=== PATIENT | female | born 1960 | race Caucasian/White ===

== ENCOUNTER 2024-04-24 19:40 | Emergency (ER) | payer BC, SELFPAY ==
--- NOTE | ~2024-04-24 | XR_ITS ---
CLINICAL HISTORY: Coughing. Pneumonia 1 view chest x-ray Comparison: CR - CHEST 2 VIEWS - 12/28/17 07:58 EDT Findings: No consolidation or effusion. Heart size is normal. No acute fracture. IMPRESSION: 1. No acute findings. This document has been electronically signed by: Cornelius Acuña MD on 04/24/2024 20:16:46
[2024-04-24 19:46] VITALS: BP 122/78; BP 130/72; PULSE 79; PULSE 82; RESP 18; TEMP 37.1; O2SAT 96; O2SAT 98; BMI 31.1
--- NOTE | 2024-04-24 19:52 | ED_ITS ---
HPI - General Adult General Chief complaint: Upper Respiratory Symptoms Stated complaint: increased sob Time Seen by Provider: 04/25/24 00:20 Source: patient and EMS Mode of arrival: EMS Limitations: no limitations History of Present Illness ED Provider: Mi Charles NP HPI narrative: Patient is a 63-year-old female who presents emergency department for evaluation. She reports that about 3 weeks ago she began with upper respiratory symptoms, she thought she was feeling better for about 5 days but then yesterday she began again with a productive cough, rhinorrhea. She reports today she was notably dyspneic with minimal exertion, having to pause while walking to take deep breaths. She presented to an urgent care where she was noted to have a room air oxygen saturation of 86%. She was given a DuoNeb and was placed on a non-rebreather. She does state that after receiving this she did feel significant improvement in her symptoms. Since then she continues to feel much better but still not 100%. She arrived to the emergency department via EMS without hypoxia. She does admit that in the past when she has been ill she has required and albuterol inhaler for management of symptoms. She denies any history of asthma/COPD, is not a cigarette smoker but have prolonged exposure as a child. She denies headaches, vision changes, dizziness, lightheadedness, chest pain, numbness or tingling of the extremities, lower extremity pain swelling redness. Denies personal history of VTE/malignancy. Denies any known sick contacts Denies identifiable exacerbating factors. Denies dyspnea on exertion, orthopnea, PND. Denies trauma, fevers, chills, URI symptoms, sore throat, difficulty swallowing, neck pain, chest pain, palpitations, cough, nausea, vomiting, abdominal pain, numbness or tingling of the extremities, recent lower extremity pain or swelling. Denies alcohol use, recreational drugs, or smoking tobacco. Related Data Previous Rx's ?Medication ?Instructions ?Recorded albuterol sulfate 90 mcg/actuation 2 puff inhalation Q4-6H PRN 04/25/24 aerosol inhaler shortness of breath or wheezing #6.7 grams azithromycin 250 mg tablet See Rx Instructions PO .COMPLEX #6 04/25/24 tabs prednisone 20 mg tablet 40 mg (2 x 20 mg) PO DAILY #8 tabs 04/25/24 Allergies Allergy/AdvReac Type Severity Reaction Status Date / Time Penicillins [PENICILLINS] Allergy Intermediate HIVES-CHILDHOOD Verified 04/24/24 19:48 REACTION Sulfa (Sulfonamide AdvReac Intermediate VOMITING Unverified 12/27/19 19:28 Antibiotics) [SULFA (SULFONAMIDE ANTIBIOTICS)] Penicillin Allergy Unknown Unknown Uncoded 04/24/24 19:48 Sulfa Allergy Unknown Unknown Uncoded 04/24/24 19:48 Review of Systems 2 Review of Systems: Yes all other systems are reviewed and are negative [facility] Past Medical History Attestation statement: The following information was validated with the patient. Source: old records reviewed Social History Social History Alcohol intake: current Alcohol intake frequency: 0-2 drinks per day Smoked in Last 30 Days: No Use of substances other than those prescribed or required for medical reasons: No Advance Directives: No Do you have a plan to hurt others: No Plan Patient : No Physical Exam ED Vital Signs: Vital Signs - 24 hr 04/24/24 19:46 04/25/24 00:32 04/25/24 00:48 Temperature 98.8 F 98.0 F Pulse Rate 79 79 88 Respiratory Rate 18 15 22 H Blood Pressure 122/78 136/87 Pulse Oximetry 96 98 Oxygen Delivery Method Room Air Room Air 04/25/24 02:00 04/25/24 02:04 04/25/24 02:37 Temperature 98.1 F Pulse Rate 100 Respiratory Rate 20 Blood Pressure 125/75 Pulse Oximetry 92 92 93 Oxygen Delivery Method Room Air Room Air BMI result Body Mass Index 31.1 Appearance: Alert.?Oriented to person, place and time. No acute distress.?Normal affect. Eyes: Pupils equal, round and reactive to light.? ENT: Pharynx normal.?? Neck: Normal inspection.? Neck supple.?? CVS: Heart sounds normal. Normal heart rate and rhythm.? Pulses normal.?? Respiratory: No respiratory distress.? Lung sounds with inspiratory and expiratory wheezing bilaterally Abdomen: Soft and non-tender. Normoactive bowel sounds. Skin: Skin warm and dry.? Normal skin color.? Extremities: No lower extremity edema.? No calf ttp? Neuro: Moves all extremities spontaneously. Sensation intact bilaterally. No focal neuro deficits. Ambulates with normal steady gait. Course Course Course Narrative: RME: 63 yold female presents to the ED for coughing, shortness of breath, and nasal congestion. Vital signs stable. lungs positive for wheezing. ED bronchodilator, SARS, strep, and chest xray ordered Reevaluation(s) Reevaluation #1: Patient endorsing significant improvement in symptoms after receiving albuterol nebulizer and prednisone. Ambulatory O2 trial with O2 saturation greater than 92% on room air consistently. She states she is not dyspneic like she was earlier today. At this time suspect symptoms are consistent with acute bronchitis. However given the recent onset of worsening of symptoms, although no overt pneumonia on chest x-ray she has been ill for quite some time, we will cover additionally with azithromycin in combination with prednisone and an albuterol inhaler. Discussed strict return precautions. Outpatient follow-up with her primary care doctor. Medications Administered Discontinued Medications Generic Name Dose Route Start Last Admin Trade Name Freq PRN Reason Stop Dose Admin Albuterol Sulfate 2.5 mg/ 0 mg 04/25/24 00:47 04/25/24 00:48 Albuterol/Ipratropium 3 ml INHALE 04/25/24 00:48 1 dose ONCE ONE Administration Prednisone 40 mg 04/25/24 00:30 04/25/24 00:54 Prednisone 20 Mg Tablet PO 04/25/24 00:31 40 mg ONCE ONE Administration Medical Decision Making Medical Decision Making MDM Narrative: Patient is a 63-year-old female with no reported past medical history presents emergency department for evaluation of shortness of breath and cough as per HPI. She has been ill for a couple of weeks she had about 5 days improvement before feeling unwell again yesterday. Today she has been notably dyspneic, having to pause while ambulating and had room-air hypoxia and presentation to urgent care. At the time of my initial evaluation she appears quite well, she has no room- air hypoxia no tachypnea no tachycardia. On auscultation she does have inspiratory and expiratory wheezing bilaterally. It appears as though she has had history of likely some degree of bronchitis with illness in the past has required her to have an albuterol inhaler prescribed. She has no associated fevers or chills. CXR is obtained prior to my assumption of care is without consolidation or infiltrate to suggest an obvious pneumonia. Viral serologies are negative. Group a strep testing is negative. No sore throat, no evidence of RPA/BRICK WASHER. Will have respiratory evaluate patient ED bronchodilator protocol has been ordered, she received prednisone 40 mg orally in addition, plan to obtain basic labs to exclude alternative pathology her symptoms such as, electrolyte derangement, volume overload including be does not appear consistent with present no evidence on chest x-ray. After treatment will plan for ambulatory O2 trial to assess oxygen saturation. She has no associated chest pain, lower suspicion for ACS however will obtain troponin and EKG to exclude ischemia. Differential Diagnosis Differential Diagnoses: The differential diagnosis associated with the presentation includes (See narrative above) Admission/Observation Consideration of admission/observation: Escalation of care including admission/observation considered (See narrative above and course narrative for further detail) Lab Data MDM Lab Attestation statement: I reviewed the patient's lab results. (See course narrative for further detail) CBC is without leukocytosis anemia or thrombocytopenia. No electrolyte derangement. No AUGUSTINA. Viral serologies are negative. Group a strep testing negative 04/25/24 00:41 04/25/24 00:41 Labs: Lab Results 04/24/24 04/25/24 Range/Units 19:59 00:41 WBC 10.6 (4.8-10.8) X10*3/uL RBC 4.38 (4.20-5.50) X10*6/uL Hgb 12.8 (12.0-16.0) g/dl Hct 37.6 (37.0-47.0) % MCV 85.8 (80.0-98.0) fL MCH 29.2 (27.0-33.0) pg MCHC 34.0 (31.0-35.0) g/dl RDW 13.5 (11.0-16.0) % Plt Count 199 (160-400) X10*3/uL MPV 10.0 (9.4-12.3) fL Immature Gran % (Auto) 0.4 (0.0-0.4) % Neut % (Auto) 64.7 (45-73) % Lymph % (Auto) 19.8 L (20-40) % Wallace % (Auto) 5.8 (2-11) % Eos % (Auto) 8.9 H (0-4) % Baso % (Auto) 0.4 (0-2) % Lymph # (Auto) 2.1 (1.2-4.9) X10*3/uL Wallace # (Auto) 0.6 (0.1-1.2) X10*3/uL Eos # (Auto) 1.0 H (0.0-0.4) X10*3/uL Baso # (Auto) 0.0 (0.0-0.2) X10*3/uL Abs Immat Gran (auto) 0.04 H (0.00-0.03) X10*3/uL Absolute Neuts (auto) 6.9 (2.0-8.3) x10*3/uL Absolute Nucleated RBC 0.000 (0.0-0.012) X10*3/uL Nucleated RBC % (auto) 0.0 (0.0-0.2) /100WBC PT 11.4 (10.9-12.4) SEC INR 1.0 (0.9-1.1) Sodium 144 (135-145) mmol/L Potassium 4.4 (3.3-5.1) mmol/L Chloride 109 H (96-108) mmol/L Carbon Dioxide 27 (22-29) mmol/L Anion Gap 12 (12-20) BUN 21 H (9-16) mg/dL Creatinine 0.91 (0.5-1.4) mg/dL Estim Creat Clear Calc 69.8 Estimated GFR > 60 Random Glucose 139 H (60-115) mg/dL Calcium 9.5 (8.4-10.2) mg/dL Total Bilirubin 0.3 (0.0-1.0) mg/dL AST 21 (5-31) U/L ALT 13 (0-31) U/L Alkaline Phosphatase 76 (39-117) U/L Troponin I High Sens 7.9 (<3.5-17.0) ng/L B-Natriuretic Peptide 24 (<100) pg/mL Total Protein 7.4 (6.5-8.0) g/dL Albumin 3.9 (3.5-5.0) g/dL Influenza Type A (PCR) NEGATIVE (Negative) Influenza Type B (PCR) NEGATIVE (Negative) RSV RNA Qual (PCR) NEGATIVE (Negative) SARS-CoV-2 RNA (RT-PCR) NEGATIVE (Negative) S. pyogenes GrpA DEBRA Negative (Negative) Independent Interpretation I performed an independent interpretation of an: Plain X-Ray (No consolidation or infiltrate) Radiology Impression Discussion of test interpretation with radiology: I have reviewed the radiologist's reading. Radiologist Impression: 1 view chest x-ray Comparison: CR - CHEST 2 VIEWS - 12/28/17 07:58 EDT Findings: No consolidation or effusion. Heart size is normal. No acute fracture. IMPRESSION: 1. No acute findings. Independent Historian Clinical information obtained from an independent historian. History obtained from or confirmed by: EMS External Record Review External record reviewed: Outpatient record Prescription Management I considered prescription management with: Antibiotic Discharge Plan Discharge Clinical Impression: Acute bronchitis Patient Disposition: Home, Self-Care Instructions: Acute Bronchitis (ED), How to Use a Dry-Powder Inhaler (ED) Additional Instructions: Follow-up with your primary care doctor within the next few days if you are not feeling better or feeling worse. Complete entire course of antibiotics as prescribed. Take prednisone daily with food to prevent stomach upset. Use albuterol inhaler as needed for shortness of breath or wheezing 1 or 2 puffs every 4-6 hours. Return to emergency department any new or worsening symptoms or concerns Prescriptions: New prednisone 20 mg tablet 40 mg PO DAILY Qty: 8 0RF albuterol sulfate 90 mcg/actuation HFA aerosol inhaler 2 puff inhalation Q4-6H PRN (Reason: shortness of breath or wheezing) Qty: 6.7 0RF azithromycin 250 mg tablet See Rx Instructions .ROUTE .COMPLEX Qty: 6 0RF Rx Instructions: For 250 mg dose pack: take 500 mg today (day 1), then 250 mg for 4 days (days 2-5) Referrals: Caitlin Pratt MD [Primary Care Provider] - Interventions: ED Discharge Assessment Last Done: 04/25/24 02:37 Discharge Date/Time: 04/25/24 02:50 Print Language: Syriac
[2024-04-24 20:21] LABS: IDNOW Serial# 08D9AD1C; Strep A Nucleic Acid Negative (Negative)
[2024-04-24 20:53] LABS: Influenza A PCR NEGATIVE (Negative); Influenza B PCR NEGATIVE (Negative); Resp Syncy Virus RNA Qual PCR NEGATIVE (Negative); SARS COV2 PCR INHOUSE NEGATIVE (Negative)
[2024-04-25 00:32] VITALS: BP 136/87; PULSE 79; RESP 15; TEMP 36.7; O2SAT 98
--- NOTE | 2024-04-25 00:36 | ECG_ITS ---
Test Reason : SOB Blood Pressure : */* mmHG Vent. Rate : 95 BPM Atrial Rate : 95 BPM P-R Int : 132 ms QRS Dur : 78 ms QT Int : 358 ms P-R-T Axes : 54 2 19 degrees QTcB Int : 449 ms Poor data quality Sinus rhythm with Fusion complexes Septal infarct , age undetermined Abnormal ECG When compared with ECG of 21-Dec-2017 10:42, Fusion complexes are now Present Referred By: Mi Charles Electronically Signed By: John Butler
[2024-04-25 00:45] LABS: MANUAL DIFF FLAG NO
--- NOTE | 2024-04-25 00:46 | MHC.EDTECH ---
this tech changed over pt into hospital gown and obtained VS, VS were stable, lab work drawn
[2024-04-25 00:47] LABS: Basophils Percent Auto 0.4 % (0-2); Eosinophils Percent Auto 8.9 % (0-4); Hematocrit 37.6 % (37.0-47.0); Hemoglobin 12.8 g/dl (12.0-16.0); Imm Gran Abs Auto 0.04 X10*3/uL (0.00-0.03); Imm Gran Pct Auto 0.4 % (0.0-0.4); Lymphocytes Absolute Auto 2.1 X10*3/uL (1.2-4.9); Lymphocytes Percent Auto 19.8 % (20-40); Mean Corpuscular Hemoglobin 29.2 pg (27.0-33.0); Mean Corpuscular Volume 85.8 fL (80.0-98.0); Monocytes Absolute Auto 0.6 X10*3/uL (0.1-1.2); Monocytes Percent Auto 5.8 % (2-11); Neutrophils Absolute Auto 6.9 x10*3/uL (2.0-8.3); Neutrophils Percent Auto 64.7 % (45-73); Platelet Count 199 X10*3/uL (160-400); Red Blood Count 4.38 X10*6/uL (4.20-5.50); Red Cell Distribution Width 13.5 % (11.0-16.0); White Blood Count 10.6 X10*3/uL (4.8-10.8)
[2024-04-25 00:48] VITALS: PULSE 88; RESP 22; O2SAT 95
[2024-04-25] MEDS: Albuterol Sulfate 2.5 MG, Albuterol/Iprat 2.5/0.5MG 3 ML 3 ML INHALE (00:48)
[2024-04-25 00:53] LABS: Prothrombin Time 11.4 SEC (10.9-12.4)
[2024-04-25] MEDS: predniSONE 20 MG TABLET 40 MG PO (00:54)
[2024-04-25 01:07] LABS: B Type Natriuretic Peptide 24 pg/mL (<100); Troponin-I High Sensitivity 7.9 ng/L (<3.5-17.0)
[2024-04-25 01:12] LABS: Alanine Aminotransferase 13 U/L (0-31); Albumin Level 3.9 g/dL (3.5-5.0); Anion Gap 12 (12-20); Aspartate Amino Transferase 21 U/L (5-31); Bilirubin Total 0.3 mg/dL (0.0-1.0); Blood Urea Nitrogen 21 mg/dL (9-16); Calcium 9.5 mg/dL (8.4-10.2); Carbon Dioxide 27 mmol/L (22-29); Chloride 109 mmol/L (96-108); Creatinine Clr Calc Pharmacy 69.8; Estimated Glomerular Filt Rate > 60; Glucose Random 139 mg/dL (60-115); Potassium 4.4 mmol/L (3.3-5.1); Sodium 144 mmol/L (135-145); Total Protein 7.4 g/dL (6.5-8.0)
[2024-04-25 01:13] LABS: Alkaline Phosphatase 76 U/L (39-117)
--- NOTE | 2024-04-25 01:15 | MHC.EDTECH ---
at this time this tech performed an EKG on the pt, pt tolerated the procedure well, EKG given to
--- NOTE | 2024-04-25 01:25 | MHC.EDTECH ---
at this time this tech placed the pt on the commercial energy auditor as a precaution r/t the pt having trembling episode during Albuterol treatment, HR was around 107 BPM
--- NOTE | 2024-04-25 01:46 | MHC.EDTECH ---
at this time this tech performed an ambulation trial w/ the pt to assess her o2 saturation during exertion, pt completed the trial well w/ a steady brisk gaite, tremors noted still from Albuterol treatment, pt o2 dropped to 92% being the lowest. RN made aware, pt back in room connected to cardiac and continuos o2 monitor
[2024-04-25 02:00] VITALS: O2SAT 92
[2024-04-25 02:04] VITALS: O2SAT 92
[2024-04-25 02:37] VITALS: BP 125/75; PULSE 100; RESP 20; TEMP 36.7; O2SAT 93
== END 2024-04-25 02:50 | disposition home or self-care (01) ==
PROVIDERS: Nurse Practitioner Family; Physician Assistant; Emergency Provider Emergency Medicine Emergency Medical Services; PCP Internal Medicine
DX: J40 Bronchitis, not specified as acute or chronic (principal); R06.02 Shortness of breath; R05.9 Cough, unspecified; J34.89 Other specified disorders of nose and nasal sinuses; R94.31 Abnormal electrocardiogram [ECG] [EKG]; Z03.818 Encounter for observation for suspected exposure to other biological agents ruled out; Z79.899 Other long term (current) drug therapy
CPT/HCPCS: 0241U; 36415; 71045; 80053; 83880; 84484; 85025; 85610; 87651; 93005; 94640; 99284; 99285

== ENCOUNTER → 2024-04-24 19:52 | Outpatient (BNV) | payer SELFPAY | PROVIDERS: Visit Provider Radiology Diagnostic Radiology | DX: J18.9 Pneumonia, unspecified organism (principal); R05.9 Cough, unspecified | CPT/HCPCS: 71045 ==

== ENCOUNTER → 2024-04-25 00:36 | Outpatient (BNV) | payer BC, SELFPAY | PROVIDERS: Emergency Provider Emergency Medicine Emergency Medical Services; PCP Internal Medicine; Visit Provider Internal Medicine Cardiovascular Disease | DX: R94.31 Abnormal electrocardiogram [ECG] [EKG] (principal) | CPT/HCPCS: 93010 ==

== ENCOUNTER 2024-05-31 15:22 | Emergency (ER) | payer BC, SELFPAY ==
--- NOTE | ~2024-05-31 | CT_ITS ---
EXAMINATION: CT HEAD WITHOUT CONTRAST CLINICAL INFORMATION: Head strike, confusion. COMPARISON: 09/20/2019. TECHNIQUE: Contiguous axial imaging was performed from the skull base to vertex without intravenous administration of contrast. This CT examination was performed using dose optimization techniques as appropriate, variously including the following: *Automated exposure control *Adjustment of mA and/or kV according to patient size (this includes techniques or standardized protocols for targeted exams where dose is matched to indication/reason for exam; i.e. extremities or head) *Use of iterative reconstruction technique FINDINGS: There is no evidence of intracranial hemorrhage or extra-axial fluid collection. There is no mass effect, or edema. No CT evidence of acute territorial infarct. Ventricles, sulci, and cisterns are normal in size and configuration for patient age. No hydrocephalus. No midline shift. Negative hyperdense MCA sign. Negative insular ribbon sign. No significant white matter abnormalities. Globes and orbital contents image normally. No extracranial soft tissue abnormalities. The paranasal sinuses, mastoid air cells, and tympanic cavities are normally aerated. No suspicious bony abnormalities. There are no acute fractures evident. CT/CT head/brain wo IV con IMPRESSION: No acute intracranial abnormality. No fracture evident. Electronically signed by: Sahil Jung MD 05/31/2024 04:26 PM [facility]
--- NOTE | ~2024-05-31 | XR_ITS ---
CLINICAL HISTORY: fall Thoracic spine two views Comparison: None Findings: No acute fracture or dislocation is demonstrated. Posterior alignment is normal throughout. [id number] degenerative change noted. Surgical clips left upper quadrant. Impression: No acute processes This document has been electronically signed by: Malik Herring MD on 05/31/2024 21:11:58
--- NOTE | ~2024-05-31 | XR_ITS ---
CLINICAL HISTORY: fall Lumbar spine three views Comparison: None Findings: No acute fracture or dislocation is demonstrated. Posterior alignment is normal throughout. [id number] degenerative change noted. Surgical clips left upper quadrant. Impression: No acute processes This document has been electronically signed by: Malik Herring MD on 05/31/2024 20:58:55
--- NOTE | ~2024-05-31 | CT_ITS ---
EXAMINATION: CT CERVICAL SPINE WITHOUT CONTRAST CLINICAL INFORMATION: Fall with head strike, confusion. COMPARISON: None available. TECHNIQUE: Spiral CT imaging of the cervical spine performed in axial plane without contrast. Multiplanar reformatted images were constructed from the axial data set. This CT examination was performed using dose optimization techniques as appropriate, variously including the following: *Automated exposure control *Adjustment of mA and/or kV according to patient size (this includes techniques or standardized protocols for targeted exams where dose is matched to indication/reason for exam; i.e. extremities or head) *Use of iterative reconstruction technique FINDINGS: CORONAL ALIGNMENT: -Normal. SAGITTAL ALIGNMENT: -Normal. C1-C2 AND CRANIOCERVICAL JUNCTION: -Intact and aligned normally. VERTEBRAL BODIES AND FACETS: -No fracture, traumatic subluxation, compression deformity, or suspicious bone lesion. DISCS: -Mild disc degeneration present spanning C3-C6. PREVERTEBRAL AND PARAVERTEBRAL SOFT TISSUES: -Normal. -There is a right lower pole 7 mm thyroid nodule. Thyroid otherwise normal. LUNG APICES: -Clear bilaterally. CT/CT cervical spine wo IV con IMPRESSION: 1. No CT evidence of acute cervical spine fracture or injury. Electronically signed by: Sahil Jung MD 05/31/2024 04:29 PM [facility] [place]
--- NOTE | 2024-05-31 16:07 | ED_ITS ---
HPI - General Adult General Chief complaint: Fall Stated complaint: fell,hit head/ confusion,head, back pain Time Seen by Provider: 05/31/24 20:33 Source: patient and old records reviewed Mode of arrival: ambulatory Limitations: no limitations History of Present Illness ED Provider: GIL VALVERDE narrative: 63 yo female with PMH of bronchitis not on thinners was outside today and fell backwards at 11am. No LOC but did hit head and back. Now has pain in back with moving. No numbness, weakness, loss of control of bowel or bladder. No other injuries noted. No extremity injury reported. MD complaint: fall Onset (ago): hour(s) (11am today) Location: head and back Radiation: non-radiation Severity: moderate Quality: aching Pain Consistency: intermittent Relieving factors: immobilization Exacerbating factors: movement Associated symptoms: denies other symptoms Treatments prior to arrival: none Related Data Previous Rx's ?Medication ?Instructions ?Recorded albuterol sulfate 90 mcg/actuation 2 puff inhalation Q4-6H PRN 04/25/24 aerosol inhaler shortness of breath or wheezing #6.7 grams azithromycin 250 mg tablet See Rx Instructions PO .COMPLEX #6 04/25/24 tabs prednisone 20 mg tablet 40 mg (2 x 20 mg) PO DAILY #8 tabs 04/25/24 cyclobenzaprine 10 mg tablet 10 mg PO TID PRN muscle spasm #20 05/31/24 tabs ibuprofen 600 mg tablet 600 mg PO Q6H PRN pain #30 tabs 05/31/24 lidocaine 5 % topical patch 1 patch topical DAILY #30 ea 05/31/24 ondansetron 4 mg disintegrating 4 mg PO Q8H PRN nausea and 05/31/24 tablet vomiting #20 tabs Allergies Allergy/AdvReac Type Severity Reaction Status Date / Time Penicillins [PENICILLINS] Allergy Intermediate HIVES-CHILDHOOD Verified 05/31/24 16:18 REACTION Sulfa (Sulfonamide AdvReac Intermediate VOMITING Verified 05/31/24 16:18 Antibiotics) [SULFA (SULFONAMIDE ANTIBIOTICS)] Penicillin Allergy Unknown Unknown Uncoded 05/31/24 16:18 Sulfa Allergy Unknown Unknown Uncoded 05/31/24 16:18 Review of Systems Review of Systems: Constitutional : No Fever, No Chills, No Fatigue ENT/Mouth : No sore throat, No Rhinorrhea Eyes: No Eye Pain, No Swelling, No Redness Cardiovascular : No Chest Pain, No SOB, No Dyspnea on Exertion Respiratory : No Cough, No Sputum Gastrointestinal : No Nausea, No Vomiting, No Diarrhea, No abdominal Pain Genitourinary : No Dysuria, No Urinary Frequency, No Hematuria, Musculoskeletal : No joint pain, No Myalgias, No Joint Swelling, pos back pain Skin : No Skin Lesions, No rash Neuro : No Weakness, No Numbness, No Dizziness, positive Headache All other systems reviewed and are negative [facility] Past Medical History Attestation statement: The following information was validated with the patient. Source: old records reviewed Medical History Bronchitis Social History Social History Alcohol intake: current Alcohol intake frequency: 0-2 drinks per day Advance Directives: Yes Advance Directives Information Provided: No Advance Directives on File: No Do you have a plan to hurt others: No Plan Physical Exam ED Vital Signs: Vital Signs - 24 hr 05/31/24 16:11 Temperature 98.1 F Pulse Rate 68 Respiratory Rate 16 Blood Pressure 140/74 H Pulse Oximetry 100 Oxygen Delivery Method Room Air BMI result Body Mass Index 32.0 Appearance: Alert. Oriented X3. No acute distress. Eyes: Pupils equal, round and reactive to light. ENT: Pharynx normal. atraumatic no signs of contusion, hackett sign raccoon eyes Neck: Normal inspection. Neck supple. CVS: Normal heart rate and rhythm. Pulses normal. Respiratory: No respiratory distress. Breath sounds normal. Abdomen: Soft and nontender. Back: ttp along thoracic lumbar spine junction no step offs Skin: Skin warm and dry. Normal skin color. Normal skin turgor. Extremities: No lower extremity edema. No calf ttp Neuro: Oriented X 3. No motor deficit. No sensory deficit. CN2-12 intact Course Course Course Narrative: This is a rapid medical exam performed by Kenia Abreu NP: Additional HPI, ROS, PE not included below will be deferred to primary provider. Patient is a [age]-year-old female presenting with confusion after a fall with head strike around 11am. Complaining of pain to occipital area. Does not believe she lost consciousness. States she felt strange at various times today. Not anticoagulated. Plan: CT head and cspine Medications Administered Discontinued Medications Generic Name Dose Route Start Last Admin Trade Name Freq PRN Reason Stop Dose Admin Cyclobenzaprine HCl 10 mg 05/31/24 20:51 05/31/24 21:11 Cyclobenzaprine Hcl 10 Mg Tablet PO 05/31/24 20:52 10 mg ONCE ONE Administration Lidocaine 1 patch 05/31/24 20:51 05/31/24 21:11 Lidocaine 4 % Patch Adh..Patch TRANSDERMA 05/31/24 20:52 1 patch ONCE ONE Administration Protocol Medical Decision Making Medical Decision Making MDM Narrative: 63 yo female with no sig PMH not on thinners here with c/o back pain and head pain after fall - no LOC not on thinners GCS 15 no vomiting at this time CT head/cspine and xrays of thoracic/lumbar spine. NV intact no signs of cauda equina. Will DC on pain medications. Differential Diagnosis Differential Diagnoses: The differential diagnosis associated with the presentation includes head injury, back strain, fracture Admission/Observation Consideration of admission/observation: Escalation of care including ad mission/observation considered GCS 15 stable for DC Independent Interpretation I performed an independent interpretation of an: Plain X-Ray (no trauma) and CT Scan (no trauma) Radiology Impression Discussion of test interpretation with radiology: I have reviewed the radiologist's reading. External Record Review External record reviewed: Outpatient record Prescription Management I considered prescription management with: Pain Medication and Other Discharge Plan Discharge Clinical Impression: Head injury, Back strain Patient Disposition: Home, Self-Care Instructions: Head Injury (ED), Back Pain (ED) Additional Instructions: return for severe headaches, unable to eat or drink, numbness, weakness or any other concerns CT scans of head, cervical spine, lumbar spine, thoracic spine - no trauma noted small R thyroid nodule your doctor should be getting ultrasound of thyroid rest and stay hydrated limit lifting to 10lbs for 2 weeks Prescriptions: New cyclobenzaprine 10 mg tablet 10 mg PO TID PRN (Reason: muscle spasm) Qty: 20 0RF lidocaine 5 % adhesive patch,medicated 1 patch topical DAILY Qty: 30 0RF Rx Instructions: leave on most painful area for up to 12 hrs ibuprofen 600 mg tablet 600 mg PO Q6H PRN (Reason: pain) Qty: 30 0RF ondansetron 4 mg tablet,disintegrating 4 mg PO Q8H PRN (Reason: nausea and vomiting) Qty: 20 0RF No Action prednisone 20 mg tablet 40 mg PO DAILY Qty: 8 0RF albuterol sulfate 90 mcg/actuation HFA aerosol inhaler 2 puff inhalation Q4-6H PRN (Reason: shortness of breath or wheezing) Qty: 6.7 0RF azithromycin 250 mg tablet See Rx Instructions .ROUTE .COMPLEX Qty: 6 0RF Rx Instructions: For 250 mg dose pack: take 500 mg today (day 1), then 250 mg for 4 days (days 2-5) Print Language: German
[2024-05-31 16:11] VITALS: BP 140/74; PULSE 68; RESP 16; TEMP 36.7; O2SAT 100; BMI 32.0
[2024-05-31] MEDS: Cyclobenzaprine HCl 10 MG TABLET PO (21:11)
[2024-05-31] MEDS: Lidocaine 4 % Patch ADH..PATCH 1 PATCH TRANSDERMA (21:11)
[2024-05-31 22:12] VITALS: BP 140/74; PULSE 68; RESP 16; TEMP 36.7; O2SAT 100
== END 2024-05-31 22:14 | disposition home or self-care (01) ==
PROVIDERS: Emergency Provider Emergency Medicine; PCP Internal Medicine
DX: S09.90XA Unspecified injury of head, initial encounter (principal); S39.012A Strain of muscle, fascia and tendon of lower back, initial encounter; M54.2 Cervicalgia; R51.9 Headache, unspecified; R07.89 Other chest pain; W01.10XA Fall on same level from slipping, tripping and stumbling with subsequent striking against unspecified object, initial encounter; Y93.9 Activity, unspecified; Y92.9 Unspecified place or not applicable; Y99.8 Other external cause status
CPT/HCPCS: 70450; 72072; 72100; 72125; 99284

== ENCOUNTER → 2024-05-31 15:24 | Outpatient (BNV) | payer BC, SELFPAY | PROVIDERS: PCP Internal Medicine; Visit Provider Radiology Diagnostic Radiology | DX: M54.9 Dorsalgia, unspecified (principal); W19.XXXA Unspecified fall, initial encounter; R51.9 Headache, unspecified; S00.93XA Contusion of unspecified part of head, initial encounter | CPT/HCPCS: 70450; 72072; 72100; 72125 ==

== ENCOUNTER 2024-06-06 11:02 | Outpatient (AMB) | payer BC, SELFPAY ==
[2024-06-06 11:05] VITALS: BP 127/83; PULSE 71; BMI 32.2
--- NOTE | 2024-06-06 11:05 | MHC.OFFVIS ---
Vital Signs 06/06/24 11:05 Height 5 ft 5 in Weight 193 lb 4 oz BMI 32.2 BP 127/83 Blood Pressure Location Lt brachial Position Sitting Pulse 71 Intake Visit Reasons: (OV) PO LSG (GLP-1 medication) Intake Note: Follow-up PO LSG not on a GLP-1 feeling good Driver'S License Examiner Required: No Allergies Penicillins [PENICILLINS] Allergy (Intermediate, Verified 05/31/24 16:18) HIVES-CHILDHOOD REACTION Sulfa (Sulfonamide Antibiotics) [SULFA (SULFONAMIDE ANTIBIOTICS)] Adverse Reaction (Intermediate, Verified 05/31/24 16:18) VOMITING Penicillin Allergy (Unknown, Uncoded 05/31/24 16:18) Unknown Sulfa Allergy (Unknown, Uncoded 05/31/24 16:18) Unknown Medication List - Last Reconciled 06/06/24 by KEERTHI Donohue albuterol sulfate 90 mcg/actuation 2 puffs inhalation Q4-6H PRN cyclobenzaprine 10 mg PO TID PRN escitalopram oxalate 20 mg PO DAILY lidocaine 5% 1 patch topical DAILY ondansetron 4 mg PO Q8H PRN HPI Comments Details: Patient is a 63-year-old female returns to the office today in follow-up. She is approximately 6 years 5 months post sleeve gastrectomy performed on 12/27/2017. Weight today is 193.4 pounds with a BMI of 32.2. She states that she has not been seen in the office in many years as she felt as though there were multiple providers and she did not establish a relationship with anybody. She does report that her lowest weight since her procedure a proximally 3-4 years ago was approximately 175 lb and her highest weight is now. Her daughter has moved back in with her who has downs syndrome. meal plan: none exercise plan: joined [facility] Medical History Ovarian cyst Bronchitis Surgical History History of suburethral sling procedure S/P appendectomy S/P partial hysterectomy Previous section Social History Alcohol intake: never Physical Exam Vital Signs: BMI result Body Mass Index 32.2 Const General: healthy appearing and no acute distress Resp Effort & Inspection: normal respiratory effort Auscultation: clear to auscultation bilaterally Cardio Rate: regular rate Rhythm: regular rhythm GI Auscultation: normal bowel sounds Extrem General: Yes normal to inspection Assessment & Plan Assessment & Plan (1) S/P laparoscopic sleeve gastrectomy: Code(s): Z98.84 - Bariatric surgery status Category: Surgical Plan: Patient will be given information regarding the right BMI magui Check postop labs Encouraged to follow a meal plan. Encouraged to go to the gym, she has a membership to the [employer] in [place]. Patient given my cell phone number to text weights weekly after she gets a body composition scale for home Call with any questions or concerns Return to clinic 1 month Orders: Orders Hemoglobin A1c Today Z98.84 - Bariatric surgery status Lipid Panel Today Z98.84 - Bariatric surgery status IRON PROFILE Today Z98.84 - Bariatric surgery status Comprehensive Met. Panel Today Z98.84 - Bariatric surgery status Vitamin B12 and Folate Today Z98.84 - Bariatric surgery status Zinc Today Z98.84 - Bariatric surgery status Vitamin A Today Z98.84 - Bariatric surgery status TSH reflex Free T4 Today Z98.84 - Bariatric surgery status Vitamin D 25-OH Total Today Z98.84 - Bariatric surgery status Insulin Today Z98.84 - Bariatric surgery status Complete Blood Count Auto Diff Today Z98.84 - Bariatric surgery status C Reactive Protein Today Z98.84 - Bariatric surgery status Vitamin B1 Today Z98.84 - Bariatric surgery status Ferritin Today Z98.84 - Bariatric surgery status Medications: Discontinued azithromycin Discontinued Reason: Patient no longer taking For 250 mg dose pack: take 500 mg today (day 1), then 250 mg for 4 days (days 2-5) 6 tabs 0RF prednisone Discontinued Reason: Patient Completed Course 40 mg (2 x 20 mg) PO DAILY 8 tabs 0RF Coding Level of Care Code Est Pt Level 4 (28449) Complex EM visit Add On G2211 Diagnoses S/P laparoscopic sleeve gastrectomy Z98.84 Time Spent (min) 40
== END 2024-06-06 11:53 | disposition home or self-care (01) ==
PROVIDERS: PCP Internal Medicine; Visit Provider Physician Assistant Surgical
DX: E66.811 Obesity, class 1 (principal); Z68.32 Body mass index [BMI] 32.0-32.9, adult; Z90.3 Acquired absence of stomach [part of]; Z98.84 Bariatric surgery status
CPT/HCPCS: 99214

== ENCOUNTER → 2024-06-06 11:02 | Outpatient (BNVA) | payer BC, SELFPAY | PROVIDERS: PCP Internal Medicine; Visit Provider Physician Assistant Surgical ==

== ENCOUNTER 2024-06-18 14:32 | Outpatient (REF) | payer BC, SELFPAY ==
--- NOTE | ~2024-06-18 | US_ITS ---
EXAMINATION: US THYROID CLINICAL INFORMATION: 7 mm nodule seen on the CT. COMPARISON: None available. TECHNIQUE: Linear transducer grayscale and color Doppler examination with attention to the region of the thyroid. FINDINGS: SIZE: Measurements of the thyroid lobes and nodules are given in sagittal, anteroposterior and transverse dimensions respectively. Right Thyroid Lobe: 5.3 x 1.3 x 1.5 cm, volume 5.1 mL. Parenchyma: The gland echotexture is normal. Thyroid vascularity is normal. Left Thyroid Lobe: 3.2 x 0.8 x 1.2 cm, volume 1.7 mL. Parenchyma: The gland echotexture is normal. Thyroid vascularity is normal. Isthmus: 0.4 cm in maximum AP dimension. Estimated total number of nodules greater than or equal to 1 cm: 2. Computer Support Analyst nodules are described as follows: 1. Location: Midportion right lobe. Size: 1.1 x 0.4 x 0.4 cm, volume 0.1 mL. Nodule characteristics: Composition: Solid (2). Echogenicity: Hypoechoic (2). Shape: Not taller than wide (0). Margins: Smooth (0). Echogenic Foci: None (0). ACR TI-RADS total points: 4 ACR TI-RADS category: 4 2. Location: Lower pole right thyroid lobe. Size: 1.3 x 0.7 x 0.8 cm, volume 0.42 mL. Nodule characteristics: Composition: Solid (2). Echogenicity: Isoechoic (1). Shape: Not taller than wide (0). Margins: Smooth (0). Echogenic Foci: Punctate echogenic foci (3). ACR TI-RADS total points: 6 ACR TI-RADS category: 4 3. Location: Upper pole right thyroid lobe. Size: 0.5 x 0.2 x 0.4 cm, volume 0.0 23 mL. Nodule characteristics: Composition: Solid (2). Echogenicity: Isoechoic (1). Shape: Not taller than wide (0). Margins: Smooth (0). Echogenic Foci: None (0). ACR TI-RADS total points: 3 ACR TI-RADS category: 3 NODES: No lymphadenopathy is seen in the tissue surrounding the thyroid gland. US/US thyroid IMPRESSION: ACR TI-RADS category: 4 in the mid and lower pole, right thyroid lobe. ACR TI-RADS category: 3 in the upper pole right thyroid lobe. ACR TI-RADS RECOMMENDATION REFERENCE: Ultrasound-guided fine-needle aspiration, followup ultrasound, no further follow up. * TR1 (0 point) and TR2 (2 points): No FNA or follow up. * TR3 (3 points): FNA if more than or equal to 2.5 cm in maximum dimension, followup ultrasound in 1, 3 and 5 years if 1.5 to 2.4 cm in maximum dimension. * TR4 (4-6 points): FNA if more than or equal to 1.5 cm in maximum dimension, followup ultrasound in 1, 2, 3 and 5 years if 1 to 1.4 cm in maximum dimension. * TR5 (more than or equal to 7 points): FNA if more than or equal to 1 cm in maximum dimension, followup ultrasound every year for 5 years if 0.5 to 0.9 cm in maximum dimension. * TR3, TR4 or TR5 nodules that are below the size threshold for followup receive no follow up. Electronically signed by: Rob Rojo MD 06/19/2024 11:34 AM EDT
== END 2024-06-18 14:33 | disposition home or self-care (01) ==
LOC: HO.US 14:32
PROVIDERS: PCP Internal Medicine; Visit Provider Internal Medicine
DX: E04.1 Nontoxic single thyroid nodule (principal)
CPT/HCPCS: 76536

== ENCOUNTER → 2024-06-18 14:50 | Outpatient (BNV) | payer BC, SELFPAY | PROVIDERS: PCP Internal Medicine; Visit Provider Radiology Diagnostic Radiology | DX: E04.1 Nontoxic single thyroid nodule (principal) | CPT/HCPCS: 76536 ==

== ENCOUNTER 2024-07-09 11:30 | Outpatient (AMB) | payer BC, SELFPAY ==
--- NOTE | 2024-07-09 09:33 | A.OFFVIS_ITS ---
VS Expanded 07/09/24 09:34 Height 5 ft 5 in Weight 191 lb BMI 31.8 Intake Visit Reasons: (TV) PO LSG (GLP-1 medication) Allergies Penicillins [PENICILLINS] Allergy (Intermediate, Verified 05/31/24 16:18) HIVES-CHILDHOOD REACTION Sulfa (Sulfonamide Antibiotics) [SULFA (SULFONAMIDE ANTIBIOTICS)] Adverse Reaction (Intermediate, Verified 05/31/24 16:18) VOMITING Penicillin Allergy (Unknown, Uncoded 05/31/24 16:18) Unknown Sulfa Allergy (Unknown, Uncoded 05/31/24 16:18) Unknown HPI Comments Details: Patient is a 64-year-old female returns to the office today in follow-up. She is approximately 6 years 6 months post sleeve gastrectomy performed on 12/27/2017. She was seen in the office 06/06/2024 after not being seen for several years, weight at that time was 193.4 lb with a BMI of 32.2. She was given information regarding the right BMI. Weight today is 191 lb. With a BMI of 31.8. Lowest weight since her procedure a proximally 3-4 years ago was approximately 175 lb and her highest weight is now. Her daughter has moved back in with her who has downs syndrome. She went on to the right bmi website, made a plan. She states she has adhd and needs support. follows the plan 4 days per week. meal plan: 8-10 1/2 gatorade protein bar, 20 gm protein 11-12 other 1/2 of bar 1-3 another 1/2 bar 4-5 another 1/2 bar 6 pm meal 6 forks protein and 6 forks veg drinking 36 -64 oz daily exercise plan: [employer], M,W,F sports athletic trainer 1030-11, then treadmill 100 дмитрий but usually 200-250 дмитрий. [facility] Medical History Ovarian cyst Bronchitis Surgical History History of suburethral sling procedure S/P appendectomy S/P partial hysterectomy Previous section Social History Alcohol intake: never Telehealth Telehealth Telehealth Platform: Telephone Location of provider rendering services: practice address Location of patient: address on file Patient Identification confirmed using: Name, : Yes Telehealth method: voice only Patient verbally consented to treatment: Yes Patient verbally consented to billing insurance company: Yes Patient informed of any privacy concerns related to visit: Yes Minutes spent on Phone/Video with Pt.: 15 Assessment & Plan Assessment & Plan (1) S/P laparoscopic sleeve gastrectomy: Code(s): Z98.84 - Bariatric surgery status Category: Surgical Plan: Patient is making some progress. She was able to identify areas of improvement. She will increase her exercise to 5 days per week with a goal of burning 400 calories per day. She will follow the meal plan exactly. Continue due to update right BMI magui. encouraged to send weight is weekly, text with any questions or concerns. Return to clinic 1 month.
[2024-07-09 09:34] VITALS: BMI 31.8
--- OUTSIDE RECORDS SUMMARY | 2024-07-09 13:13 | XMS_ITS | Continuity of Care Document ---
Author Organization [facility] Address [address] [place] [address] Phone [phone] Care Team Providers Care Card Lacer Jacquard Name Role Phone Caitlin Pratt M.D. Care Team Information Receiv er [phone] Social History Type Date Description Comments Sex Unknown Medical Devices Description No Information Available Encounters Description No Information Available Assessments Description No Information Available Plan of Treatment Future Appointment(s):* 09/28/2024 9:15 am - KEERTHI Cristina at Main Office Functional Status Description No Information Available Mental Status Description No Information Available Referrals Description No Information Available
== END 2024-07-09 11:48 | disposition home or self-care (01) ==
LOC: HO.HBS 11:33
PROVIDERS: PCP Internal Medicine; Visit Provider Physician Assistant Surgical
DX: E66.811 Obesity, class 1 (principal); Z68.31 Body mass index [BMI] 31.0-31.9, adult; Z90.3 Acquired absence of stomach [part of]; Z98.84 Bariatric surgery status
CPT/HCPCS: 99213

== ENCOUNTER → 2024-07-09 11:30 | Outpatient (BNVA) | payer BC, SELFPAY | PROVIDERS: PCP Internal Medicine; Visit Provider Physician Assistant Surgical | DX: Z98.84 Bariatric surgery status (principal) ==